=== PATIENT | male | born 1955 | race Caucasian/White ===

== ENCOUNTER → 2020-07-22 | Outpatient (CLI) | payer OTHER ==
[~2020-07-22] MED LIST: ALLOPURINOL 30300 M2 PO; MEDROL DOSPAK21 TAB PO; NORCO 5-325 TA1 EACH PO
== END ==
LOC: LAB 10:40
PROVIDERS: ATTEND Anesthesiology
DX: Z01.812 Encounter for preprocedural laboratory examination (principal); Z20.828 Contact with and (suspected) exposure to other viral communicable diseases